=== PATIENT | female | born 1955 | race Caucasian/White ===

== ENCOUNTER 2021-05-12 14:32 | Emergency (ER) | payer MEDICAID, OTHER ==
[~2021-05-12] VITALS: Ht 152 cm; Wt 60.0 kg
--- NOTE | 2021-05-12 14:38 | ED General ---
General Stated Complaint: AFIB;SOB;SWELLING Source of Information: Patient Exam Limitations: No Limitations History of Present Illness Date Seen by Provider: May 12, 2021 Time Seen by Provider: 14:37 Initial Comments 66-year-old female brought to the ER from the outpatient clinic by Tierra Spears NP with concern over having increased swelling. Patient arrives in wheelchair and is immediately refusing a lab draw or IV start. She denies shortness of air, denies chest pain, does admit to having swelling of her extremities that "comes and goes." Patient agrees to chest x-ray and EKG Allergies and Home Medications Patient Home Medication List Home Medication List Reviewed: Yes Review of Systems Review of Systems Constitutional: No fever, No malaise, No weakness Respiratory: No cough, No short of breath Cardiovascular: see HPI; No chest pain; edema; No palpitations, No syncope Gastrointestinal: No abdominal pain, No nausea, No vomiting Genitourinary: No dysuria, No frequency Musculoskeletal: No back pain, No joint pain Skin: No change in color, No rash Past Vfgkisw-Eojzgp-Kxooug Hx Patient Social History Tobacco Use?: Yes Physical Exam Vital Signs Vital Signs - First Documented 05/12/21 14:32 Temp 37.0 Pulse 105 Resp 16 B/P (MAP) 130/77 (94) Pulse Ox 97 O2 Delivery Room Air Capillary Refill : Height, Weight, BMI Height: '" Weight: lbs. oz. kg; BMI Method: General Appearance: Chronically ill, Cachetic Eyes: Bilateral Eye PERRL, Bilateral Eye EOMI HEENT: PERRL/EOMI, Normal ENT Inspection Neck: Non Tender, Supple Respiratory: Chest Non Tender, Lungs Clear, Normal Breath Sounds, No Respiratory Distress Cardiovascular: No JVD, Irregularly Irregular, Other (moderate LE pitting edema) Gastrointestinal: Non Tender, Soft, Other (edema of abdomen) Back: Normal Inspection, No CVA Tenderness Progress/Results/Core Measures Suspected Sepsis SIRS Temperature: Pulse: Respiratory Rate: Blood Pressure / Mean: Results/Orders My Orders Orders - VALDEZVENFREDERICK HOLGUIN DO Ed Iv/Invasive Line Start (05/12/21 14:38) Chest 1 View Ap/Pa Only (05/12/21 14:38) Ekg Tracing (05/12/21 14:38) Troponin I Fs (05/12/21 14:38) Cbc With Automated Diff (05/12/21 14:38) Comprehensive Metabolic Panel (05/12/21 14:38) Probnp Fs (05/12/21 14:38) Vital Signs/I&O 05/12/21 14:32 Temp 37.0 Pulse 105 Resp 16 B/P (MAP) 130/77 (94) Pulse Ox 97 O2 Delivery Room Air Capillary Refill : ECG Initial ECG Impression Date: May 12, 2021 Initial ECG Impression Time: 14:50 Initial ECG Rate: 100 Initial ECG Rhythm: A Fib/Flutter Initial ECG Impression: Atrial Fibrillation w/RVR Initial ECG Comparisson: No Previous ECG Available Diagnostic Imaging Diagonstic Imaging: Xray Plain Films/CT/US/NM/MRI: chest Comments Date of Exam:05/12/21 CHEST 1 VIEW AP/PA ONLY INDICATION: Atrial fibrillation. TIME OF EXAM: 2:39 p.m. No prior studies are available for comparison. There is parenchymal consolidation in the left base as well as a moderate left effusion. Calcified nodule right midlung is noted. Lungs are otherwise clear. There is no pneumothorax. IMPRESSION: Left basilar consolidation and small to moderate left pleural effusion. Dictated on workstation # [id number] Dict: 05/12/21 1459 Trans: 05/12/21 1510 [facility] [id number] Interpreted by: ADELAIDE ORDOÑEZ MD Electronically signed by: Departure Impression Primary Impression: Atrial fibrillation Qualified Codes: I48.91 - Unspecified atrial fibrillation Additional Impressions: Edema Qualified Codes: R60.9 - Edema, unspecified Medical non-compliance Disposition: 07 AGAINST MEDICAL ADVICE Condition: Stable/Unchanged Departure-Patient Inst. Referrals: [facility]/ (PCP) Primary Care Physician TIERRA SPEARS APRN (Family) Primary Care Physician Patient Instructions: Atrial Fibrillation (DC), Why Taking Your Medicine or Drug as Ordered Is Important Add. Discharge Instructions: You have refused medical treatment and we are unable to diagnose and treat your condition without further information that labwork would provide. You are at risk of sudden or permanent disability without medical intervention. Your rights to refuse medical treatment are respected, but are not without potential serious consequences or . Call 911 for any worsening condition or if you change your mind and desire medical assistance Call Tierra Spears tomorrow morning to arrange a follow up appointment FREDERICK HAMILTON DO May 12, 2021 14:38
--- NOTE | 2021-05-12 15:12 | Diagnostic Imaging Report ---
INDICATION: Atrial fibrillation. TIME OF EXAM: 2:39 p.m. No prior studies are available for comparison. There is parenchymal consolidation in the left base as well as a moderate left effusion. Calcified nodule right midlung is noted. Lungs are otherwise clear. There is no pneumothorax. IMPRESSION: Left basilar consolidation and small to moderate left pleural effusion. Dictated by: Dictated on workstation # [id number]
[2021-05-12 16:23] VITALS: BP 130/77
== END 2021-05-12 16:15 | disposition left against medical advice (07) ==
LOC: ER FS 14:34
DX: I48.91 Unspecified atrial fibrillation (principal); R60.9 Edema, unspecified; Z91.19 Patient's noncompliance with other medical treatment and regimen
CPT/HCPCS: 71045; 93005

== ENCOUNTER 2021-05-18 16:22 | Emergency (ER) | payer MEDICAID ==
[~2021-05-18] VITALS: Ht 157.4 cm; Wt 49.5 kg
[2021-05-18 17:16] LABS: BASOPHILS # (AUTO) 0.2 10^3/uL (0.0-0.1); BASOPHILS % (AUTO) 1 % (0-10); EOSINOPHILS # (AUTO) 0.2 10^3/uL (0.0-0.3); EOSINOPHILS % (AUTO) 2 % (0-10); HEMATOCRIT 39 % (35-52); HEMOGLOBIN 13.4 g/dL (11.5-16.0); LYMPHOCYTES # (AUTO) 1.5 X 10^3 (1.0-4.0); LYMPHOCYTES % (AUTO) 13 % (12-44); MEAN CORPUSCULAR HEMOGLOBIN 33 pg (25-34); MEAN CORPUSCULAR HGB CONC 35 g/dL (32-36); MEAN CORPUSCULAR VOLUME 97 fL (80-99); MEAN PLATELET VOLUME 10.7 fL (9.0-12.2); MONOCYTES # (AUTO) 1.5 X 10^3 (0.0-1.0); MONOCYTES % (AUTO) 13 % (0-12); NEUTROPHILS # (AUTO) 8.2 X 10^3 (1.8-7.8); NEUTROPHILS % (AUTO) 71 % (42-75); PLATELET COUNT 119 10^3/uL (130-400); WHITE BLOOD COUNT 11.6 10^3/uL (4.3-11.0)
--- NOTE | 2021-05-18 17:28 | ED Cardiac General ---
History of Present Illness General Chief Complaint: Cardiac/General Problems Stated Complaint: BLOOD CLOT History of Present Illness Date Seen by Provider: May 18, 2021 Time Seen by Provider: 16:30 Initial Comments 66-year-old female presents from [facility] clinic with concerns of a "blood clot" due to having an elevated D-dimer. Does not have any chest pain or shortness of air. She does have chronic lower extremity edema that is gotten progressively worse and now having swelling of her lower abdomen as well. Patient seen by myself last week for the same concern, sent from the clinic then as well. Patient left AMA, refused all lab work and did not want to be seen. See note for details. Patient says that she has been treated for the lower extremity swelling, placed on a diuretic but the lower abdominal swelling came afterward. Patient is a smoker, smokes 1 cigarette daily and rarely drinks alcohol now, although in the past she drink heavily. Allergies and Home Medications Allergies Coded Allergies: No Known Drug Allergies (Unverified , 05/18/21) Patient Home Medication List Home Medication List Reviewed: Yes Review of Systems Review of Systems Constitutional: No fever, No malaise, No weakness EENTM: No Symptoms Reported Respiratory: Denies Cough, Denies Shortness of Air Cardiovascular: Denies Chest Pain; Edema; Denies Lightheadedness, Denies Palpitations, Denies Syncope Gastrointestinal: Abdomen Distended; Denies Abdominal Pain, Denies Constipated, Denies Diarrhea, Denies Nausea; Poor Appetite; Denies Poor Fluid Intake, Denies Vomiting Musculoskeletal: No back pain, No joint pain Skin: No change in color, No lesions, No rash Past Spqwezw-Huxngt-Bcybpb Hx Patient Social History Tobacco Use?: Yes Tobacco type used: Cigarettes Smoking Status: Current Everyday Smoker Physical Exam Vital Signs Vital Signs - First Documented 05/18/21 16:25 Temp 36.3 Pulse 122 Resp 16 B/P (MAP) 126/84 (98) Pulse Ox 100 O2 Delivery Room Air Capillary Refill : Height, Weight, BMI Height: '" Weight: lbs. oz. kg; 25.00 BMI Method: General Appearance: No Apparent Distress, Chronically ill HEENT: PERRL/EOMI, Normal ENT Inspection Neck: Full Range of Motion, Supple Respiratory: Chest Non Tender, Lungs Clear, Normal Breath Sounds, No Accessory Muscle Use, No Respiratory Distress Cardiovascular: Regular Rate, Rhythm, No JVD, Tachycardia, Other (dependent edema and LE edema to pelvis and lower abdomen w distention) Gastrointestinal: Normal Bowel Sounds, Non Tender, Distended; No Guarding Extremity: Normal Capillary Refill, Pedal Edema, Swelling Focused Exam Lactate Level 05/18/21 17:02: Lactic Acid Level 2.55*H Lactic Acid Level Laboratory Tests Test 05/18/21 17:02 Lactic Acid Level 2.55 MMOL/L (0.50-2.00) *H Progress/Results/Core Measures Results/Orders Lab Results Laboratory Tests Test 05/18/21 17:02 Range/Units White Blood Count 11.6 H 4.3-11.0 10^3/uL Red Blood Count 4.01 3.80-5.11 10^6/uL Hemoglobin 13.4 11.5-16.0 g/dL Hematocrit 39 35-52 % Mean Corpuscular Volume 97 80-99 fL Mean Corpuscular Hemoglobin 33 25-34 pg Mean Corpuscular Hemoglobin Concent 35 32-36 g/dL Red Cell Distribution Width 17.4 H 10.0-14.5 % Platelet Count 119 L 130-400 10^3/uL Mean Platelet Volume 10.7 9.0-12.2 fL Immature Granulocyte % (Auto) 1 % Neutrophils (%) (Auto) 71 42-75 % Lymphocytes (%) (Auto) 13 12-44 % Monocytes (%) (Auto) 13 H 0-12 % Eosinophils (%) (Auto) 2 0-10 % Basophils (%) (Auto) 1 0-10 % Neutrophils # (Auto) 8.2 H 1.8-7.8 X 10^3 Lymphocytes # (Auto) 1.5 1.0-4.0 X 10^3 Monocytes # (Auto) 1.5 H 0.0-1.0 X 10^3 Eosinophils # (Auto) 0.2 0.0-0.3 10^3/uL Basophils # (Auto) 0.2 H 0.0-0.1 10^3/uL Immature Granulocyte # (Auto) 0.1 0.0-0.1 10^3/uL Neutrophils % (Manual) 74 % Lymphocytes % (Manual) 12 % Monocytes % (Manual) 9 % Eosinophils % (Manual) 1 % Basophils % (Manual) 1 % Metamyelocytes % 2 % Blast Cells 1 % Toxic Granulation 1+ Percent Immature Platelet Fraction 7.1 0.0-7.6 % Polychromasia SLIGHT Hypochromasia SLIGHT Microcytosis SLIGHT D-Dimer 0.09 0.00-0.49 UG/ML Sodium Level 131 L 135-145 MMOL/L Potassium Level 3.5 L 3.6-5.0 MMOL/L Chloride Level 95 L 98-107 MMOL/L Carbon Dioxide Level 26 21-32 MMOL/L Anion Gap 10 5-14 MMOL/L Blood Urea Nitrogen 9 7-18 MG/DL Creatinine 0.65 0.60-1.30 MG/DL Estimat Glomerular Filtration Rate 92 BUN/Creatinine Ratio 14 Glucose Level 155 H 70-105 MG/DL Lactic Acid Level 2.55 *H 0.50-2.00 MMOL/L Calcium Level 7.5 L 8.5-10.1 MG/DL Corrected Calcium 9.2 8.5-10.1 MG/DL Magnesium Level 1.4 L 1.6-2.4 MG/DL Total Bilirubin 0.9 0.1-1.0 MG/DL Aspartate Amino Transf (AST/SGOT) 52 H 5-34 U/L Alanine Aminotransferase (ALT/SGPT) 20 0-55 U/L Alkaline Phosphatase 241 H 40-136 U/L Troponin I 0.30 <0.30 NG/ML Pro-B-Type Natriuretic Peptide 1319.0 H <75.0 PG/ML Total Protein 6.4 6.4-8.2 GM/DL Albumin 1.9 L 3.2-4.5 GM/DL Lipase 7 L 8-78 U/L Serum Alcohol 10 <10 MG/DL My Orders Orders - ROVENSTFREDERICK FOOTE DO Ed Iv/Invasive Line Start (05/18/21 16:35) Alcohol (05/18/21 16:35) Cbc With Automated Diff (05/18/21 16:35) Comprehensive Metabolic Panel (05/18/21 16:35) Lactic Acid Analyzer (05/18/21 16:35) Magnesium (05/18/21 16:35) Probnp Fs (05/18/21 16:35) Troponin I Fs (05/18/21 16:35) Lipase (05/18/21 16:35) Fibrin Degradation Products (05/18/21 16:35) Manual Differential (05/18/21 17:02) Iohexol Injection (Omnipaque 350 Mg/Ml 1 (05/18/21 18:15) Received Contrast (Hold Metformin- Contr (05/18/21 18:15) Sodium Chloride Flush (Catheter Flush Sy (05/18/21 18:15) Ns (Ivpb) (Sodium Chloride 0.9% Ivpb Bag (05/18/21 18:15) Ct Chest/Abdomen/Pelvis W (05/18/21 18:04) Medications Given in ED Current Medications Medications Dose Ordered Sig/Adam Route Start Time Stop Time Status Last Admin Dose Admin Iohexol 100 ml ONCE ONCE IV 05/18/21 18:15 05/18/21 18:33 DC 05/18/21 18:45 80 ML Sodium Chloride 10 ml NEEDED PRN IV 05/18/21 18:15 05/18/21 20:01 DC 05/18/21 18:45 10 ML Sodium Chloride 100 ml ONCE ONCE IV 05/18/21 18:15 05/18/21 18:33 DC 05/18/21 18:45 80 ML Vital Signs/I&O 05/18/21 05/18/21 16:25 20:00 Temp 36.3 Pulse 122 105 Resp 16 18 B/P (MAP) 126/84 (98) 98/67 Pulse Ox 100 97 O2 Delivery Room Air Room Air Progress Progress Note : Progress Note Very pleasant lady after getting past anxiety of having an IV stick. She did calm down nicely and was more cooperative and agreed to lab work and subsequently a CT of her chest, abdomen & pelvis. Review of her labs shows hypomagnesemia as well as hypoalbuminemia, highly suggestive of poor appetite related to alcoholism. Patient but she stopped drinking heavily about [address] scan-see results, primarily fluid throughout the abdomen with appearance of anasarca. Patient with normal kidney and liver function with no CT abnormality of either. Normal-appearing heart with elevated BNP and clinical dependent edema, but gross accumulation of fluid in her abdomen. 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 Also advised she will need a pelvic ultrasound due to abnormality seen on the CT scan in her uterus. Discussed patient diet and lack of protein as well as magnesium and advised supplements and/or improving her diet. Recommended to continue her Lasix and her potassium, try to increase her movement with walking as tolerated and elevate her legs daily for 20 minutes. Advised to continue low salt diet Initial ECG Impression Date: May 18, 2021 Initial ECG Impression Time: 16:40 Initial ECG Rate: 122 Initial ECG Rhythm: S.Tach Initial ECG Intervals: Normal Initial ECG Impression: Normal Departure Impression Primary Impression: Edema Qualified Codes: R60.9 - Edema, unspecified Additional Impressions: CHF (congestive heart failure) Qualified Codes: I50.9 - Heart failure, unspecified Hypomagnesemia Edema due to hypoalbuminemia Abnormal CT of the abdomen Disposition: HOME, SELF-CARE Condition: Stable Departure-Patient Inst. Decision time for Depature: 19:39 Referrals: [facility] ([place]) Primary Care Physician TIERRA SPEARS APRN (Family) Primary Care Physician Patient Instructions: Dependent Edema (DC), Heart Failure ED, High Calorie, High Protein Diet, Low Magnesium Level Add. Discharge Instructions: Keep your appointment to see Cardiology in June. Follow up with your PCP in 1 week for re-evaluation and to get set up for a pelvic ultrasound for abnormalities of your uterus noted on your CT scan today. You are encouraged to increase your protein intake either through a protein shake supplement or eating more meat or beans daily. Avoid excessive salt Continue your Lasix and Potassium daily as instructed. Try to take a walk and afterwards elevate your legs above your belly for 15 to 20 minutes You should take a magnesium supplement daily to increase your depleted levels...suggest starting with 250mg twice a day All discharge instructions reviewed with patient and/or family. Voiced understanding. FREDERICK HAMILTON DO May 18, 2021 17:28
[2021-05-18 17:57] LABS: CREATININE SERUM 0.65 MG/DL (0.60-1.30); POTASSIUM 3.5 MMOL/L (3.6-5.0)
[2021-05-18 17:58] LABS: ALBUMIN 1.9 GM/DL (3.2-4.5); BILIRUBIN,TOTAL 0.9 MG/DL (0.1-1.0); CALCIUM 7.5 MG/DL (8.5-10.1); MAGNESIUM 1.4 MG/DL (1.6-2.4); TOTAL PROTEIN 6.4 GM/DL (6.4-8.2)
[2021-05-18] MEDS ORDERED: HOLD METFORMIN - RECEIVED CONTRAST 20 ML VIAL IV SCH (18:15)
[2021-05-18] MEDS ORDERED: CATHETER FLUSH 10 ML SYR IV PRN (18:15)
[2021-05-18] MEDS ORDERED: NS 100 ML (IVPB) BAG IV ONE (18:15)
[2021-05-18] MEDS ORDERED: IOHEXOL 350 MG/ML 100 ML (OMNIPAQUE 350) VIAL IV ONE (18:15)
[2021-05-18 18:36] LABS: BASOPHILS % (MANUAL) 1 %; BLAST CELLS 1 %; EOSINOPHILS % (MANUAL) 1 %; HYPOCHROMASIA SLIGHT; LYMPHOCYTES % (MANUAL) 12 %; METAMYELOCYTES % 2 %; MICROCYTOSIS SLIGHT; MONOCYTES % (MANUAL) 9 %; NEUTROPHILS % (MANUAL) 74 %; POLYCHROMASIA SLIGHT; TOXIC GRANULATION/VACUOLAZATIO 1+
--- NOTE | 2021-05-18 19:14 | Diagnostic Imaging Report ---
PROCEDURE: CT chest, abdomen, and pelvis with contrast. TECHNIQUE: Multiple contiguous axial images were obtained through the chest, abdomen, and pelvis after the administration of intravenous contrast. Auto Exposure Controls were utilized during the CT exam to meet ALARA standards for radiation dose reduction. INDICATION: Edema, weakness COMPARISON: None available FINDINGS: No significant adenopathy within the chest. No aneurysmal dilatation of thoracic aorta. The heart is within normal limits in size. No significant pericardial effusion. Large hiatal hernia with the majority of the stomach being within the chest. Moderate left and small right dependent layering pleural effusions. These are associated with adjacent atelectasis with significant partial collapse of the left lower lobe. Additional dependent densities are noted along the left major fissure. No pneumothorax. Calcified granuloma within the right upper lobe. Focal consolidation with airspace opacities and air bronchograms noted within the right middle lobe. Scattered osseous degenerative changes without acute osseous abnormality. The liver is small in size. No focal hepatic mass. The spleen is unremarkable. The adrenal glands are unremarkable. Fatty infiltration of the pancreas. The gallbladder is unremarkable. Right and left renal cysts are present. Additional subcentimeter bilateral renal hypodensities are present, too small to completely characterize. No evidence of hydronephrosis. Moderate vascular calcifications without aneurysmal dilatation of the abdominal aorta. The urinary bladder is unremarkable. Hypodensity within the central aspect of the uterus is present measuring up to 1.1 cm. Otherwise, the uterus and adnexal structures are unremarkable. Scattered regions of mural thickening are noted within both the large and small bowel. No evidence of bowel obstruction or pneumatosis. Severe amount of free fluid is noted throughout the abdomen and pelvis. Severe amount of anasarca is also noted. No free air. No significant adenopathy within the abdomen or pelvis. Scattered osseous degenerative changes without acute osseous abnormality. IMPRESSION: Moderate left and mild right bibasilar pleural effusions with associated adjacent atelectasis. Additional infiltrate or less likely edema is also noted within the bilateral lungs, greatest within the left lower lobe and right middle lobe. Severe amount of ascites with severe amount of anasarca. Abnormal hypodensity within the central aspect of the uterus. This could relate to fluid within the endometrial cavity, though endometrial thickening or malignancy would be an additional consideration. Recommend a nonemergent pelvic ultrasound for further evaluation. Scattered regions of mural thickening involving both the large and small bowel, related to poor distention versus edema. Large hiatal hernia with majority of the stomach being within the chest. Additional findings as described above. Dictated by: Dictated on workstation # [id number]
[2021-05-18 20:00] VITALS: BP 98/67
== END 2021-05-18 20:01 | disposition home or self-care (01) ==
LOC: EDUNIT# 16:22 → ER FS 16:23
DX: R60.9 Edema, unspecified (principal); I50.9 Heart failure, unspecified; E83.42 Hypomagnesemia; R93.5 Abnormal findings on diagnostic imaging of other abdominal regions, including retroperitoneum; F17.210 Nicotine dependence, cigarettes, uncomplicated
CPT/HCPCS: 36415; 71260; 74177; 80053; 83605; 83690; 83735; 83880; 84484; 85007; 85027; 85379; G0480; 80320; 93005

== ENCOUNTER 2021-07-10 10:30 | Inpatient (IN) | payer MEDICAID ==
[~2021-07-10] VITALS: Ht 152.4 cm; Wt 51.6 kg
--- NOTE | 2021-07-10 11:43 | Diagnostic Imaging Report ---
INDICATION: Lower extremity swelling. TIME OF EXAM: 11:14 AM CORRELATION is made with prior chest from 05/12/2021. Moderate left and small right pleural effusion is similar to prior exam. The heart size is stable. There is calcified granuloma right midlung. Otherwise lung lopez are clear. There is no pneumothorax. IMPRESSION: Continued bilateral effusions, left greater with associated left basilar consolidation. Overall appearance is similar to examination from 05/12/2021. Dictated by: Dictated on workstation # [id number]
[2021-07-10 11:48] LABS: CLARITY,URINE CLOUDY; COLOR,URINE ORANGE; GLUCOSE, URINE (UA) TRACE (NEGATIVE); KETONES,URINE TRACE (NEGATIVE); LEUKOCYTE ESTERASE ,URINE 1+ (NEGATIVE); NITRITE,URINE POSITIVE (NEGATIVE); PROTEIN,URINE TRACE (NEGATIVE)
[2021-07-10 11:56] LABS: BACTERIA,URINE LARGE /HPF; BILIRUBIN,URINE 1+ (NEGATIVE); SQUAMOUS EPITHELIAL CELL,UR 0-2 /HPF; WBC,URINE 25-50 /HPF
[2021-07-10 11:58] LABS: BASOPHILS % (AUTO) 0 % (0-10); EOSINOPHILS % (AUTO) 1 % (0-10); HEMATOCRIT 34 % (35-52); HEMOGLOBIN 12.1 g/dL (11.5-16.0); LYMPHOCYTES % (AUTO) 13 % (12-44); MEAN CORPUSCULAR HEMOGLOBIN 33 pg (25-34); MEAN CORPUSCULAR HGB CONC 36 g/dL (32-36); MEAN CORPUSCULAR VOLUME 92 fL (80-99); MEAN PLATELET VOLUME 11.1 fL (9.0-12.2); MONOCYTES % (AUTO) 11 % (0-12); NEUTROPHILS % (AUTO) 73 % (42-75); PLATELET COUNT 131 10^3/uL (130-400); WHITE BLOOD COUNT 13.5 10^3/uL (4.3-11.0)
[2021-07-10 11:59] LABS: BASOPHILS # (AUTO) 0.1 10^3/uL (0.0-0.1); EOSINOPHILS # (AUTO) 0.1 10^3/uL (0.0-0.3); LYMPHOCYTES # (AUTO) 1.7 X 10^3 (1.0-4.0); MONOCYTES # (AUTO) 1.5 X 10^3 (0.0-1.0); NEUTROPHILS # (AUTO) 9.9 X 10^3 (1.8-7.8)
[2021-07-10] MEDS ORDERED: cefTRIAXone 1,000 MG in WATER (STERILE) FOR INJECTION 10 ML IV ONE (12:30)
[2021-07-10 12:49] LABS: BILIRUBIN,TOTAL 1.2 MG/DL (0.1-1.0); BUN/CREATININE RATIO 11; CARBON DIOXIDE 24 MMOL/L (21-32); CHLORIDE 94 MMOL/L (98-107); CREATININE SERUM 0.79 MG/DL (0.60-1.30); GFR ESTIMATED 73; GLUCOSE 108 MG/DL (70-105); POTASSIUM 3.7 MMOL/L (3.6-5.0); SODIUM 128 MMOL/L (135-145)
[2021-07-10 12:50] LABS: ALANINE AMINOTRANSFERASE 9 U/L (0-55); ALBUMIN 1.9 GM/DL (3.2-4.5); ALKALINE PHOSPHATASE 161 U/L (40-136); TOTAL PROTEIN 6.4 GM/DL (6.4-8.2)
--- NOTE | 2021-07-10 13:47 | ED Lower Extremity ---
General Chief Complaint: Lower Extremity Stated Complaint: YANNA LEG EDEMA Nursing Triage Note: Patient's son's yara states patient has had bilateral leg/feet and abdominal swelling for at least 2 months. Patient was at a cardiology appointment today and was referred to the ED for evaluation. Patient has weeping edema in her lower extremities bilaterally, multiple open wounds on legs, heels are macerated and flores. Patient's family states that patient has not been taking her lasix or potassium for two weeks because she did not feel as though they were helping. Source: patient Exam Limitations: no limitations History of Present Illness Date Seen by Provider: Jul 10, 2021 Time Seen by Provider: 11:45 Initial Comments Patient is 66-year-old female who presents with failure to thrive and medical noncompliance at home. Patient has a history of longstanding alcoholism, liver cirrhosis with ascites who presents with peripheral edema of lower extremities, ascites and failure to take home diuretics for the past 2 weeks. Patient is weeping edema of lower extremities with macerated tissue of heels and sacral decubitus regions. Patient lives at home with her and has meds available but has not chosen to take them. She has not drank in the past 6 months and smokes on occasion. She has difficulty standing or walking secondary to weakness fatigue and peripheral edema. She denies any acute symptoms or complaints today. Additional history is by her son's tony who is medical power of attorney at law Onset: just prior to arrival Pain/Injury Location: bilateral leg, bilateral foot Method of Injury: other Modifying Factors: Improves With Other Allergies and Home Medications Allergies Coded Allergies: No Known Drug Allergies (Unverified , 05/18/21) Patient Home Medication List Home Medication List Reviewed: Yes Review of Systems Constitutional: see HPI EENTM: see HPI Respiratory: see HPI Cardiovascular: see HPI Gastrointestinal: see HPI Genitourinary: see HPI Musculoskeletal: see HPI Skin: see HPI Psychiatric/Neurological: See HPI All Other Systems Reviewed Negative Unless Noted: Yes Past Dyucwyj-Okhxwx-Ltfvwr Hx Patient Social History Tobacco Use?: Yes Smoking Status: Current Someday Smoker Alcohol Use?: Yes Pt feels they are or have been: No Physical Exam Vital Signs Vital Signs - First Documented 07/10/21 10:40 Temp 36.8 Pulse 104 Resp 16 B/P (MAP) 107/63 (78) Pulse Ox 100 O2 Delivery Room Air Capillary Refill : Less Than 3 Seconds Height, Weight, BMI Height: '" Weight: lbs. oz. kg; 19.00 BMI Method: General Appearance: WD/WN, no apparent distress, other (Cachectic, appears far older than stated age) HEENT: normal ENT inspection Neck: supple Cardiovascular: no edema, JVD Respiratory: decreased breath sounds Gastrointestinal: soft, other (Ascites) Legs: bilateral leg soft tissue tenderness, bilateral leg swelling, bilateral leg other (Erythema erythema with pressure sores on posterior ankles) Ankles: bilateral ankle soft tissue tenderness, bilateral ankle swelling, bilateral ankle other Neurologic/Tendon: other Neurologic/Psychiatric: other Skin: other Lymphatic: other Progress/Results/Core Measures Results/Orders Lab Results Laboratory Tests Test 07/10/21 10:54 07/10/21 11:15 Range/Units White Blood Count 13.5 H 4.3-11.0 10^3/uL Red Blood Count 3.68 L 3.80-5.11 10^6/uL Hemoglobin 12.1 11.5-16.0 g/dL Hematocrit 34 L 35-52 % Mean Corpuscular Volume 92 80-99 fL Mean Corpuscular Hemoglobin 33 25-34 pg Mean Corpuscular Hemoglobin Concent 36 32-36 g/dL Red Cell Distribution Width 17.1 H 10.0-14.5 % Platelet Count 131 130-400 10^3/uL Mean Platelet Volume 11.1 9.0-12.2 fL Immature Granulocyte % (Auto) 1 % Neutrophils (%) (Auto) 73 42-75 % Lymphocytes (%) (Auto) 13 12-44 % Monocytes (%) (Auto) 11 0-12 % Eosinophils (%) (Auto) 1 0-10 % Basophils (%) (Auto) 0 0-10 % Neutrophils # (Auto) 9.9 H 1.8-7.8 X 10^3 Lymphocytes # (Auto) 1.7 1.0-4.0 X 10^3 Monocytes # (Auto) 1.5 H 0.0-1.0 X 10^3 Eosinophils # (Auto) 0.1 0.0-0.3 10^3/uL Basophils # (Auto) 0.1 0.0-0.1 10^3/uL Immature Granulocyte # (Auto) 0.1 0.0-0.1 10^3/uL Percent Immature Platelet Fraction 5.4 0.0-7.6 % Sodium Level 128 L 135-145 MMOL/L Potassium Level 3.7 3.6-5.0 MMOL/L Chloride Level 94 L 98-107 MMOL/L Carbon Dioxide Level 24 21-32 MMOL/L Anion Gap 10 5-14 MMOL/L Blood Urea Nitrogen 9 7-18 MG/DL Creatinine 0.79 0.60-1.30 MG/DL Estimat Glomerular Filtration Rate 73 BUN/Creatinine Ratio 11 Glucose Level 108 H 70-105 MG/DL Calcium Level 8.0 L 8.5-10.1 MG/DL Corrected Calcium 9.7 8.5-10.1 MG/DL Total Bilirubin 1.2 H 0.1-1.0 MG/DL Aspartate Amino Transf (AST/SGOT) 28 5-34 U/L Alanine Aminotransferase (ALT/SGPT) 9 0-55 U/L Alkaline Phosphatase 161 H 40-136 U/L Troponin I < 0.30 <0.30 NG/ML C-Reactive Protein 6.39 H <0.50 MG/DL Pro-B-Type Natriuretic Peptide 2125.0 H <75.0 PG/ML Total Protein 6.4 6.4-8.2 GM/DL Albumin 1.9 L 3.2-4.5 GM/DL Urine Color ORANGE Urine Clarity CLOUDY Urine pH 5.0 5-9 Urine Specific [place] >=1.030 1.016-1.022 Urine Protein TRACE H NEGATIVE Urine Glucose (UA) TRACE H NEGATIVE Urine Ketones TRACE H NEGATIVE Urine Nitrite POSITIVE H NEGATIVE Urine Bilirubin 1+ H NEGATIVE Urine Urobilinogen 0.2 < = 1.0 MG/DL Urine Leukocyte Esterase 1+ H NEGATIVE Urine RBC (Auto) 1+ H NEGATIVE Urine RBC NONE /HPF Urine WBC 25-50 H /HPF Urine Squamous Epithelial Cells 0-2 /HPF Urine Crystals NONE /LPF Urine Bacteria LARGE H /HPF Urine Casts NONE /LPF Urine Mucus NEGATIVE /LPF Urine Culture Indicated YES My Orders Orders - ELVIN PICKETT DO Cbc With Automated Diff (07/10/21 11:20) Comprehensive Metabolic Panel (07/10/21 11:20) Troponin I Fs (07/10/21 11:20) Ekg-Prn For Chest Pain Or Rhyt (07/10/21 11:20) Chest 1 View Ap/Pa Only (07/10/21 11:20) Probnp Fs (07/10/21 11:21) Mercer Cath (07/10/21 11:22) Ua Culture If Indicated (07/10/21 11:22) Crp Fs (07/10/21 11:20) Urine Culture (07/10/21 11:15) Ceftriaxone (Rocephin) (07/10/21 12:30) Vital Signs/I&O 07/10/21 10:40 Temp 36.8 Pulse 104 Resp 16 B/P (MAP) 107/63 (78) Pulse Ox 100 O2 Delivery Room Air Blood Pressure Mean: 78 Departure Communication (Admissions) Chest x-ray, pleural effusion EKG: Sinus rhythm Patient with failure to thrive with medical noncompliance and anasarca secondary to protein deficiency and cirrhosis. IV fluids and antibiotics given for treatment of urinary tract infection. I did an extended conversation with patient, her medical power of attorney at law regarding treatment options including hospital admission with agreement to continue home medications upon discharge and/or skilled nursing or hospice. Patient has demonstrated she is currently not capable of caring for self at home. Impression Primary Impression: Anasarca Additional Impressions: Decubitus ulcers Urinary tract infection Noncompliance with medication regimen Disposition: ADMITTED INPATIENT Condition: Stable Admissions Decision to Admit Reason: Admit from ER (General) Decision to Admit/Date: Jul 10, 2021 Time/Decision to Admit Time: 13:15 Transfer Method of Transfer: EMS Departure-Patient Inst. Referrals: [facility] (PCP) Primary Care Physician TIERRA SPEARS APRN (Family) Primary Care Physician ELVIN PICKETT DO Jul 10, 2021 13:47
[2021-07-10] MEDS ORDERED: NS IV 1000 ML 1,000 ML IV SCH (14:00)
[2021-07-10] MEDS ORDERED: RT-ALBUTEROL HFA 8.5 GM INHALER IH PRN (16:30)
[2021-07-10] MEDS ORDERED: HYDR25TA4 PO (18:41)
[2021-07-10] MEDS ORDERED: ALBU90AE2 PO (18:41)
[2021-07-10] MEDS: NS IV 1000 ML 1,000 ML IV SCH (18:52)
[2021-07-10] MEDS ORDERED: ACETAMINOPHEN 500 MG TAB (TYLENOL) PO PRN (19:00)
[2021-07-10 19:11] VITALS: BP 106/71
[2021-07-10] MEDS: ENOXAPARIN 40 MG/0.4 ML (LOVENOX) SYR SC SCH (20:05)
[2021-07-10 23:39] VITALS: BP 92/66
[2021-07-11] MEDS: NS IV 1000 ML 1,000 ML IV SCH ×2 (02:46→15:48)
[2021-07-11 04:20] VITALS: BP 94/59
[2021-07-11 06:21] LABS: MEAN PLATELET VOLUME 10.6 fL (9.0-12.2)
[2021-07-11 06:23] LABS: BASOPHILS # (AUTO) 0.1 10^3/uL (0.0-0.1); BASOPHILS % (AUTO) 1 % (0-10); EOSINOPHILS # (AUTO) 0.2 10^3/uL (0.0-0.3); EOSINOPHILS % (AUTO) 1 % (0-10); HEMATOCRIT 31 % (35-52); HEMOGLOBIN 11.1 g/dL (11.5-16.0); LYMPHOCYTES # (AUTO) 1.9 10^3/uL (1.0-4.0); LYMPHOCYTES % (AUTO) 15 % (12-44); MEAN CORPUSCULAR HEMOGLOBIN 33 pg (25-34); MEAN CORPUSCULAR HGB CONC 36 g/dL (32-36); MEAN CORPUSCULAR VOLUME 92 fL (80-99); MONOCYTES # (AUTO) 1.4 10^3/uL (0.0-1.0); MONOCYTES % (AUTO) 11 % (0-12); NEUTROPHILS # (AUTO) 8.6 10^3/uL (1.8-7.8); NEUTROPHILS % (AUTO) 71 % (42-75); PLATELET COUNT 106 10^3/uL (130-400); WHITE BLOOD COUNT 12.1 10^3/uL (4.3-11.0)
[2021-07-11 06:36] LABS: POTASSIUM 3.6 MMOL/L (3.6-5.0)
[2021-07-11 06:37] LABS: CALCIUM 7.5 MG/DL (8.5-10.1)
[2021-07-11 06:42] LABS: CREATININE SERUM 0.77 MG/DL (0.60-1.30)
[2021-07-11 07:28] VITALS: BP 89/60
[2021-07-11] MEDS ORDERED: SPIRONOLACTONE 25 MG (ALDACTONE) TAB PO ONE (11:45)
--- NOTE | 2021-07-11 11:47 | History & Physical-Hospitalist ---
History of Present Illness HPI/Chief Complaint Patient is 66-year-old female who presents with failure to thrive and medical noncompliance at home. Patient has a history of longstanding alcoholism, liver cirrhosis with ascites who presents with peripheral edema of lower extremities, ascites and failure to take home diuretics for the past 2 weeks. Patient is weeping edema of lower extremities with macerated tissue of heels and sacral decubitus regions. Patient lives at home with her and has meds available but has not chosen to take them. She has not drank in the past 6 months and smokes on occasion. She has difficulty standing or walking secondary to weakness fatigue and peripheral edema. She denies any acute symptoms or complaints today. Additional history is by her son's toyn who is medical power of product development consultant Upon my arrival the patient was little bit confused but not agitated. She asked about going home as she just started a new job. In discussion with her daughter as I suspected this is not the case. Patient reports no pain and feels that she is ready to go but she is too weak to even sit up on the edge of the bed without assistance. She denied abdominal pain back pain shortness of breath or chest pain reports her leg swelling is gone down and she feels that she is ready to go home. She also denies dysuria night sweats chills or fever. She has a long history of medical noncompliance reportedly it has been 6 months since her last drink but a longstanding history of alcohol use disorder. Utgfnzcn-ju-gwo reports no known diagnosis of congestive heart failure and no previous known diagnosis of cirrhosis. She reports that she has been extremely frail with poor appetite at home and they had had a conversation with her that she would only be coming home under hospice care. care home has been offered but she is a damant against this. [id number] reports she is a durable power of medical product development consultant and last night they discussed and overall in agreement with DO NOT RESUSCITATE status. Date Seen 07/11/21 Time Seen by a Provider: 10:00 Attending Physician Rajani Weeks MD [facility] [place] Referring Physician Date of Admission Jul 10, 2021 at 17:50 Home Medications & Allergies Home Medications Reviewed patient Home Medication Reconciliation performed by pharmacy medication reconciliations thermal technician and/or nursing. Patients Allergies have been reviewed. Allergies Allergies Coded Allergies No Known Drug Allergies (Unverified05/18/21) Past Vmamlcq-Ujntwd-Wlwsow Hx Patient Social History Tobacco Use?: Yes Tobacco type used: Cigarettes Smoking Status: Current Someday Smoker Substance type: Nicotine Substance frequency: Couple times a week Alcohol Use?: No Additional Alcohol Comments: heavy drinker until 6 months ago Pt feels they are or have been: No Current Status Advance Directives: No Communicates: Verbally Primary Language: [place] Citizen Preferred Spoken Language: [place] Is interpretation needed?: No Sensory deficits: Vision impairment, Hearing impairment Implanted or Applied Medical D: None Review of Systems Constitutional: see HPI Physical Exam Physical Exam Vital Signs Vital Signs - First Documented 07/10/21 10:40 Temp 36.8 Pulse 104 Resp 16 B/P (MAP) 107/63 (78) Pulse Ox 100 O2 Delivery Room Air Capillary Refill : Less Than 3 Seconds Height, Weight, BMI Height: '" Weight: lbs. oz. kg; 19.63 BMI Method: General Appearance: No Apparent Distress, Chronically ill, Other (Cachectic white female who appears to be 20 to 30 years older than her stated age.) Neck: Full Range of Motion, Non Tender, Supple Respiratory: No Accessory Muscle Use, No Respiratory Distress, Other (Few basilar rales with significant diminished breath sounds posteriorly anterior chest is clear no wheezing or rhonchi noted. ) Cardiovascular: Regular Rate, Rhythm, No Edema, No Gallop, No JVD, No Murmur, Normal Peripheral Pulses Gastrointestinal: Normal Bowel Sounds, Other (Significant abdominal distention abdomen tense nontender unable to appreciate organomegaly aggravated by likely tense ascites.) Back: Other (Diffuse posterior decubitus reported in the emergency room maggots reportedly removed from the wound around the coccyx.) Extremity: Other (2-3+ edema which is an improvement overnight some wrinkling of skin which is tissue paper thin with areas of superficial dermal desquamation heels boggy red and warm) Results Results/Procedures Labs Laboratory Tests 07/10/21 10:54 07/11/21 06:03 Patient resulted labs reviewed. Assessment/Plan Admission Diagnosis 1. Likely end-stage cirrhosis with secondary anasarca aggravated by severe malnutrition prognosis terminal which was discussed with the daughter all are in agreement with DNR status. Advised strong consideration for hospice services as the patient is adamant about not going to a custodial facility. Will initiate low-dose spironolactone 25 mg daily to begin with and continue to monitor volume status. 2. Severe malnutrition aggravating third spacing. 3. Considering elevated BNP there is possibility of a component of dilated and/or ischemic cardiomyopathy although considering lack of symptoms the former is more likely than the latter. Will obtain echocardiography for further evaluation. 4. Anemia and mild thrombocytopenia likely due to #1. 5. UTI growing E. coli sensitivity pending continue Rocephin. 6. Unstageable heel and posterior sacral and gluteal decubitus expect symptoms to get worse secondary to profound malnutrition with end-stage cirrhosis despite best medical care. Will consult wound care on Tuesday as they are not available over the weekend. Admission Status: Inpatient Order (span 2 midnights) Reason for Inpatient Admission: See admission diagnosis Critical Care Critically Ill Patient RAJANI WEEKS MD Jul 11, 2021 11:47
[2021-07-11 11:50] VITALS: BP 86/64
[2021-07-11] MEDS ORDERED: cefTRIAXone 1,000 MG/SWFI 10 ML IV PUSH IV SCH ×2 (15:00)
[2021-07-11 16:00] VITALS: BP 76/52
[2021-07-11] MEDS: ENOXAPARIN 40 MG/0.4 ML (LOVENOX) SYR SC SCH (19:04)
[2021-07-11] MEDS ORDERED: NICOTINE 14 MG (NICODERM) PATCH TD ONE (19:35)
[2021-07-11 20:00] VITALS: BP 92/59
[2021-07-11 23:39] VITALS: BP 93/57
[2021-07-12 04:11] VITALS: BP 96/65
[2021-07-12] MEDS: NS IV 1000 ML 1,000 ML IV SCH (04:16)
[2021-07-12 07:40] VITALS: BP 97/65
[2021-07-12] MEDS ORDERED: SPIRONOLACTONE 25 MG (ALDACTONE) TAB PO SCH (09:00)
[2021-07-12] MEDS ORDERED: NICOTINE 14 MG (NICODERM) PATCH TD SCH (09:00)
--- NOTE | 2021-07-12 09:37 | Discharge Summary ---
Diagnosis/Chief Complaint Date of Admission Jul 10, 2021 at 17:50 Date of Discharge Admission Diagnosis 1. Likely end-stage cirrhosis with secondary anasarca aggravated by severe malnutrition prognosis terminal which was discussed with the daughter all are in agreement with DNR status. Advised strong consideration for hospice services as the patient is adamant about not going to a shelter facility. Will initiate low-dose spironolactone 25 mg daily to begin with and continue to monitor volume status. 2. Severe malnutrition aggravating third spacing. 3. Considering elevated BNP there is possibility of a component of dilated and/or ischemic cardiomyopathy although considering lack of symptoms the former is more likely than the latter. Will obtain echocardiography for further evaluation. 4. Anemia and mild thrombocytopenia likely due to #1. 5. UTI growing E. coli sensitivity pending continue Rocephin. 6. Unstageable heel and posterior sacral and gluteal decubitus expect symptoms to get worse secondary to profound malnutrition with end-stage cirrhosis despite best medical care. Will consult wound care on Tuesday as they are not available over the weekend. Primary Care Vivian Bautista Flux Mixer Discharge Summary Discharge Physical Exam Allergies: Coded Allergies: No Known Drug Allergies (Unverified , 05/18/21) Vitals & I&Os Vital Signs Date Time Temp Pulse Resp B/P (MAP) Pulse Ox O2 Delivery O2 Flow Rate FiO2 07/12/21 07:40 36.6 101 16 97/65 (76) 97 Room Air General Appearance: Other (Patient ) Hospital Course Was the Problem List Reviewed?: No Patient is 66-year-old female who presents with failure to thrive and medical noncompliance at home. Patient has a history of longstanding alcoholism, liver cirrhosis with ascites who presents with peripheral edema of lower extremities, ascites and failure to take home diuretics for the past 2 weeks. Patient is weeping edema of lower extremities with macerated tissue of heels and sacral decubitus regions. Patient lives at home with her and has meds available but has not chosen to take them. She has not drank in the past 6 months and smokes on occasion. She has difficulty standing or walking secondary to weakness fatigue and peripheral edema. She denies any acute symptoms or complaints today. Additional history is by her son's tony who is medical power of erisa attorney Upon my arrival the patient was little bit confused but not agitated. She asked about going home as she just started a new job. In discussion with her daughter as I suspected this is not the case. Patient reports no pain and feels that she is ready to go but she is too weak to even sit up on the edge of the bed without assistance. She denied abdominal pain back pain shortness of breath or chest pain reports her leg swelling is gone down and she feels that she is ready to go home. She also denies dysuria night sweats chills or fever. She has a long history of medical noncompliance reportedly it has been 6 months since her last drink but a longstanding history of alcohol use disorder. [id number] reports no known diagnosis of congestive heart failure and no previous known diagnosis of cirrhosis. She reports that she has been extremely frail with poor appetite at home and they had had a conversation with her that she would only be coming home under hospice care. [facility] has been offered but she is adamant against this. Fccvvwei-sa-hym reports she is a durable power of medical erisa attorney and last night they discussed and overall in agreement with DO NOT RESUSCITATE status.I was contacted the morning of the of the patient had . In discussion with the nurse they have gotten her up to the commode where she abruptly passed out she initially had return of consciousness briefly they were going to transfer her onto the bed where she passed out and was noted to have no heart rate. There were no complaints of pain and she did not appear to be in any type of acute distress prior to sudden likely cardiac . Labs (last 24 hrs) Microbiology 07/10/21 Urine Culture - Preliminary, Resulted Escherichia coli Patient resulted labs reviewed. Discussion & Recommendations Discharge Planning: <30 minutes discharge planning Discharge Home Medications: Active Scripts Active Reported Proair Digihaler (Albuterol Sulfate) 90 Mcg Aer.pw.bas 1 Inh PO Q4H PRN Hydrochlorothiazide 25 Mg Tablet 25 Mg PO DAILY Instructions to patient/family Please see electronic discharge instructions given to patient. Copy Copies To 1: [facility]/RAJANI JAMES MD Jul 12, 2021 09:37
[2021-07-13] MEDS ORDERED: NICOTINE PATCH REMOVAL TP SCH (08:59)
== END 2021-07-12 13:00 | disposition expired | DRG 432 ==
LOC: EDUNIT# 10:30 → ER FS 10:32 → 4TH 17:50
PROVIDERS: ADMIT Internal Medicine; ATTEND Internal Medicine
DX: K70.31 Alcoholic cirrhosis of liver with ascites (principal); E43 Unspecified severe protein-calorie malnutrition; N39.0 Urinary tract infection, site not specified; R60.1 Generalized edema; R62.7 Adult failure to thrive; Z68.22 Body mass index [BMI] 22.0-22.9, adult; B96.20 Unspecified Escherichia coli [E. coli] as the cause of diseases classified elsewhere; Z66 Do not resuscitate; D64.9 Anemia, unspecified; D69.6 Thrombocytopenia, unspecified; Z91.19 Patient's noncompliance with other medical treatment and regimen; L89.150 Pressure ulcer of sacral region, unstageable; L89.620 Pressure ulcer of left heel, unstageable; L89.610 Pressure ulcer of right heel, unstageable; L89.300 Pressure ulcer of unspecified buttock, unstageable; F17.210 Nicotine dependence, cigarettes, uncomplicated
CPT/HCPCS: 36415; 51702; 71045; 80048; 80053; 81000; 83880; 84484; 85025; 86141; 87077; 87088; 87186; 93005; 93306; 96374